=== PATIENT | female | born 1940 | race Hispanic/Latino ===

== ENCOUNTER → 2019-09-09 | Outpatient (CLI) | payer OTHER | END | disposition home or self-care (01) | LOC: RAH 09:16 | PROVIDERS: ATTEND Family Medicine | DX: J44.9 Chronic obstructive pulmonary disease, unspecified (principal); K44.9 Diaphragmatic hernia without obstruction or gangrene; M48.54XA Collapsed vertebra, not elsewhere classified, thoracic region, initial encounter for fracture | CPT/HCPCS: 71250; 74150 ==

== ENCOUNTER → 2019-09-13 | Outpatient (CLI) | payer OTHER | END | disposition home or self-care (01) | LOC: CANPRECLI → RAH 10:00 | PROVIDERS: ATTEND Family Medicine | DX: J44.9 Chronic obstructive pulmonary disease, unspecified (principal); K44.9 Diaphragmatic hernia without obstruction or gangrene; M48.54XA Collapsed vertebra, not elsewhere classified, thoracic region, initial encounter for fracture | CPT/HCPCS: 71250 ==